=== PATIENT | female | born 1980 | race Caucasian/White ===

== ENCOUNTER 2025-02-01 09:05 | Emergency (ER) | payer SELFPAY ==
[~2025-02-01] VITALS: Ht 157.5 cm; Wt 74.8 kg
[2025-02-01 09:09] VITALS: O2SAT 98
[2025-02-01 09:17] VITALS: BP 125/84; PULSE 77; RESP 18; TEMP 36.8; O2SAT 100
== END 2025-02-01 13:54 | disposition left against medical advice (07) ==
LOC: ER 09:05
DX: M25.572 Pain in left ankle and joints of left foot (principal); M79.675 Pain in left toe(s); Z53.21 Procedure and treatment not carried out due to patient leaving prior to being seen by health care provider
CPT/HCPCS: 81025